=== PATIENT | female | born 1995 | race Caucasian/White ===

== ENCOUNTER → 2022-07-17 | Outpatient (CLI) | payer OTHER ==
[~2022-07-17] MED LIST: ADV1DS; BENZ100C18; C250T; DCCL10CRX; FEXO1TAB49; RT-ALBUTEROL SULF 2.5 MG/3 ML PRE-MIX VIAL INH ONE; [UNRECOGNIZED DRUG - OTHER] IH ONE
== END ==
LOC: RT 08:00
PROVIDERS: ATTEND Nurse Practitioner Family
DX: J45.909 Unspecified asthma, uncomplicated (principal)
CPT/HCPCS: 94060; 94726; 94729

== ENCOUNTER → 2022-07-23 | Outpatient (CLI) | payer OTHER | LOC: RT 13:00 | PROVIDERS: ATTEND Nurse Practitioner Family | DX: J45.909 Unspecified asthma, uncomplicated (principal) | CPT/HCPCS: 94070; 95070 ==